=== PATIENT | male | born 1950 | race Caucasian/White ===

== ENCOUNTER 2023-06-23 13:42 | Emergency (ER) | payer MEDICARE, OTHER ==
[2023-06-23 15:31] VITALS: BP 106/82; PULSE 84
== END 2023-06-23 14:48 | disposition home or self-care (01) ==
LOC: VM.ED 13:42
DX: S00.212A Abrasion of left eyelid and periocular area, initial encounter (principal); S50.812A Abrasion of left forearm, initial encounter; S60.512A Abrasion of left hand, initial encounter; E10.9 Type 1 diabetes mellitus without complications; V28.41XA Electric (assisted) bicycle driver injured in noncollision transport accident in traffic accident, initial encounter; Y93.44 Activity, trampolining
CPT/HCPCS: 99283